=== PATIENT | female | born 1950 | race Caucasian/White ===

== ENCOUNTER → 2018-02-19 | Outpatient (CLI) | payer MEDICARE, OTHER | END | disposition home or self-care (01) | LOC: PCVCIMAG 14:13 | DX: M79.605 Pain in left leg (principal); M79.604 Pain in right leg; M79.89 Other specified soft tissue disorders | CPT/HCPCS: 93970 ==

== ENCOUNTER → 2018-02-23 | Outpatient (CLI) | payer MEDICARE, OTHER | END | disposition home or self-care (01) | LOC: PCVCCLINIC 15:44 | DX: E11.8 Type 2 diabetes mellitus with unspecified complications (principal); R60.0 Localized edema; M79.672 Pain in left foot; M25.472 Effusion, left ankle; G47.33 Obstructive sleep apnea (adult) (pediatric); Z87.891 Personal history of nicotine dependence; Z79.899 Other long term (current) drug therapy; Z79.82 Long term (current) use of aspirin; Z79.84 Long term (current) use of oral hypoglycemic drugs; Z88.8 Allergy status to other drugs, medicaments and biological substances | CPT/HCPCS: G0463 ==